=== PATIENT | female | born 1995 | race Two or more races ===

== ENCOUNTER 2018-04-19 23:59 | Emergency (ER) | payer SELFPAY ==
[~2018-04-19] VITALS: Ht 157.5 cm; Wt 90.9 kg
[2018-04-20 00:14] VITALS: Ht 157.5 cm; Wt 90.9 kg
[2018-04-20] MEDS ORDERED: MONODOX100 MG (00:15)
[2018-04-20] MEDS ORDERED: STERAPRED 5MG 125 MG PO (00:15)
[2018-04-20 00:46] LABS: BASOPHILS 0.1 % (0-2); EOSINOPHILS 0.4 % (0-7); HEMATOCRIT 42.4 % (36.0-48.0); HEMOGLOBIN 14.2 g/dL (12-16); IMMATURE GRANULOCYTES 1.2 % (0-5); MCH 26.9 pg (26.0-34.0); MCHC 33.5 g/dL (31.0-37.0); MCV 80.3 fL (80.0-100.0); MONOCYTES 8.8 % (2-11); NEUTROPHILS 80.5 % (40-80); PLATELET COUNT 306 10x3/uL (130-400); RBC 5.28 10x6/uL (4.00-5.40); RDW 13.6 % (11.5-14.5); WBC 10.3 10x3/uL (4.8-10.8)
[2018-04-20 00:57] LABS: APPEARANCE CLEAR (CLEAR); BILIRUBIN NEGATIVE (NEGATIVE); COLOR YELLOW (YELLOW); GLUCOSE NEGATIVE (NEGATIVE); KETONE SMALL mg/dL (NEGATIVE); NITRITE NEGATIVE (NEGATIVE); PROTEIN NEGATIVE (NEGATIVE); SPECIFIC GRAVITY 1.015 (1.005-1.020); UROBILINOGEN NORMAL (NORMAL)
[2018-04-20 01:00] LABS: HCG URINE NEGATIVE (NEGATIVE)
[2018-04-20 01:09] LABS: ALBUMIN 3.9 g/dL (3.4-5.0); ANION GAP 19.2 mmol/L (8-16); BILIRUBIN - TOTAL 0.4 mg/dL (0.2-1.3); CALCIUM 8.3 mg/dL (8.5-10.1); CARBON DIOXIDE 22.7 mmol/L (21.0-32.0); CREATININE - SERUM 1.1 mg/dL (0.6-1.3); POTASSIUM - SERUM 3.9 mmol/L (3.5-5.1); PROTEIN - SERUM 8.1 g/dL (6.4-8.2)
[2018-04-20] MEDS ORDERED: ZOFRAN ODT4 MG/UDTAB PO (01:33)
[2018-04-20] MEDS ORDERED: BENTYL 20 MG TA20 MG PO (01:33)
[2018-04-20 01:47] VITALS: BP 146/72
== END 2018-04-20 01:47 | disposition home or self-care (01) ==
LOC: D.ER 23:59
PROVIDERS: Family Medicine
DX: A08.4 Viral intestinal infection, unspecified (principal)